=== PATIENT | male | born 1970 | race Caucasian/White ===

== ENCOUNTER 2017-04-03 02:48 | Emergency (ER) | payer OTHER ==
[~2017-04-03] VITALS: Ht 182.9 cm; Wt 131.5 kg
[2017-04-03 03:04] VITALS: BP 180/81
[2017-04-03] MEDS ORDERED: AMOX1TAB61 PO (03:35)
--- NOTE | 2017-04-03 03:35 | PHYS DOC ---
Past Medical History Past Medical History: No Pertinent History Past Surgical History: TURP, Other Alcohol Use: None Drug Use: None (currently), Methamphetamine (>10 years ago) Adult General Chief Complaint Chief Complaint: SORE THROAT HPI HPI Patient is a 46 year old male who presents with 1 week of gradually worsening left lower dental pain and slight sore throat, constant, achy. He denies voice changes, fever or chills, difficulty breathing, difficulty swallowing, difficulty opening mouth, facial swelling. Review of Systems Review of Systems Constitutional: Denies fever or chills [] Eyes: Denies change in visual acuity, redness, or eye pain [] HENT: Denies nasal congestion or sore throat [] Respiratory: Denies cough or shortness of breath [] Cardiovascular: No additional information not addressed in HPI [] GI: Denies abdominal pain, nausea, vomiting, bloody stools or diarrhea [] : Denies dysuria or hematuria [] Musculoskeletal: Denies back pain or joint pain [] Integument: Denies rash or skin lesions [] Neurologic: Denies headache, focal weakness or sensory changes [] Endocrine: Denies polyuria or polydipsia [] Allergies Allergies Allergies Coded Allergies Type Severity Reaction Last Updated Verified No Known Drug Allergies 04/16/15 No Physical Exam Physical Exam Constitutional: Well developed, well nourished, no acute distress, non-toxic appearance. [] HENT: Normocephalic, atraumatic, bilateral external ears normal, oropharynx moist, no oral exudates, nose normal. Has multiple dental caries and has gumline tenderness along left lower gumline; No swelling or discoloration; No stridor, change of voice, tongue swelling, trismus, or drooling; Uvula is midline and floor is nontender [] Eyes: PERRLA, EOMI. [] Neck: Normal range of motion, supple, no stridor. [] Cardiovascular:Heart rate regular rhythm [] Lungs & Thorax: Bilateral breath sounds clear to auscultation [] Abdomen: Bowel sounds normal, soft, no tenderness. [] Skin: Warm, dry, no erythema, no rash. [] Back: Normal range of motion. [] Extremities: No tenderness, ROM intact. [] Neurologic: Alert and oriented X 3, normal motor function, normal sensory function, no focal deficits noted. [] Psychologic: Affect normal, judgement normal, mood normal. [] Current Patient Data Vital Signs Vital Signs Date Time Temp Pulse Resp B/P (MAP) Pulse Ox O2 Delivery O2 Flow Rate FiO2 04/03/17 03:04 97.7 99 20 97 Room Air 97.7 Course & Med Decision Making Course & Med Decision Making Discussed he needs to follow up with a dentist. Will place on antibiotics. Return precautions given. He understands and agrees with plan. Dragon Disclaimer Dragon Disclaimer This electronic medical record was generated, in whole or in part, using a voice recognition dictation system. Departure Departure Impression: Primary Impression: Periodontitis Disposition: HOME, SELF-CARE Condition: STABLE Referrals: CAMILLE HENSON PA-C (PCP) Patient Instructions: Dental Pain, [id number] Additional Instructions: Take Augmentin for likely dental infection. Follow-up with a dentist within 3 days. Return for any concerns. Scripts Amoxicillin/Potassium Clav (AUGMENTIN 875-125 TABLET) 1 Each Tablet 1 TAB PO BID, #14 TAB Prov: Enriqueta AMES MD 04/03/17 Enriqueta AMES MD April 03, 2017 03:35
[2017-04-03 11:16] LABS: NEGATIVE OBC STREP NEG; POSITIVE OBC STREP POS
== END 2017-04-03 03:44 | disposition home or self-care (01) ==
LOC: ER 02:48
DX: K05.30 Chronic periodontitis, unspecified (principal)
CPT/HCPCS: 87070; 87880; 99283; 99284

== ENCOUNTER 2017-08-14 13:58 | Emergency (ER) | payer OTHER ==
[~2017-08-14] VITALS: Ht 182.9 cm; Wt 127.0 kg
[~2017-08-14 13:58] MED LIST: AMOX1TAB61 PO
[2017-08-14 14:58] LABS: BASO # 0.1 x10^3/uL (0.0-0.2); BASO % 1 % (0-3); EOS % 2 % (0-3); HEMATOCRIT 42.3 % (39.0-53.0); HEMOGLOBIN 13.9 g/dL (13.0-17.5); LYMPH # 1.3 x10^3/uL (1.0-4.8); LYMPH % 14 % (24-48); MEAN CORPUSCULAR HEMOGLOBIN 27 pg (25-35); MEAN CORPUSCULAR HGB CONC 33 g/dL (31-37); MEAN CORPUSCULAR VOLUME 83 fL (79-100); MONO % 8 % (0-9); NEUT % 75 % (31-73); PLATELET COUNT 299 x10^3/uL (140-400); RED BLOOD COUNT 5.07 x10^6/uL (4.30-5.70); RED CELL DISTRIBUTION WIDTH 13.5 % (11.5-14.5); WHITE BLOOD COUNT 9.3 x10^3/uL (4.0-11.0)
[2017-08-14] MEDS ORDERED: FAMOTIDINE 20 MG TABLET. PO ONE (15:00)
[2017-08-14] MEDS ORDERED: ONDANSETRON PF 4 MG/2 ML VIAL. IV ONE (15:00)
[2017-08-14 15:14] LABS: CALCIUM 8.9 mg/dL (8.5-10.1); CREATININE 0.7 mg/dL (0.7-1.3); GFR 120.9; POTASSIUM 3.4 mmol/L (3.5-5.1)
[2017-08-14 15:20] LABS: ALBUMIN 3.2 g/dL (3.4-5.0); ALBUMIN/GLOBULIN RATIO 0.9 (1.0-1.7); TOTAL BILIRUBIN 0.3 mg/dL (0.2-1.0); TOTAL PROTEIN 6.8 g/dL (6.4-8.2)
--- NOTE | 2017-08-14 15:29 | PHYS DOC ---
Past Medical History Past Medical History: No Pertinent History Past Surgical History: TURP, Other Alcohol Use: None Drug Use: None, Methamphetamine Adult General Chief Complaint Chief Complaint: ABDOMINAL PAIN HPI HPI Patient is a 47 year old male presents with diffuse. Umbilical pain described as burning and rated moderate to severe the past 3 days. Pain is worse 20-30 minutes after eating. Associated with nausea and vomiting. Patient reports vomiting stomach tense mixed with dark red blood. There are also reports dark stools for the past 2 days. Denies back pain. Denies dizziness lightheadedness. Denies routine and said and alcohol use. No history of GI bleed or peptic ulcer disease. No other acute symptoms or complaints. Review of Systems Review of Systems Review symptoms as per history of present illness. All other review symptoms are negative. Current Medications Current Medications Current Medications Medications (Trade) Dose Ordered Sig/Yanira Start Time Stop Time Status Last Admin Dose Admin Famotidine (Pepcid) 20 mg 1X ONCE 08/14/17 15:00 08/14/17 15:01 DC 08/14/17 15:14 20 MG Iohexol (Omnipaque 300 Mg/ml) 75 ml 1X ONCE 08/14/17 15:45 08/14/17 15:46 DC 08/14/17 15:49 75 ML Multi-Ingredient Mouthwash/Gargle (Gi Cocktail Single Dose) 15 ml STK-MED ONCE 08/14/17 17:23 08/14/17 17:24 DC Ondansetron HCl (Zofran) 4 mg 1X ONCE 08/14/17 15:00 08/14/17 15:01 DC 08/14/17 15:14 4 MG Allergies Allergies Allergies Coded Allergies Type Severity Reaction Last Updated Verified No Known Drug Allergies 04/16/15 No Physical Exam Physical Exam Constitutional: Well developed, well nourished, no acute distress, non-toxic appearance. [] HENT: Normocephalic, atraumatic, bilateral external ears normal, oropharynx moist, no oral exudates, nose normal. [] Eyes: PERRLA, EOMI, conjunctiva normal, no discharge. [] Neck: Normal range of motion, no tenderness, supple, no stridor. [] Cardiovascular:Heart rate regular rhythm, no murmur [] Lungs & Thorax: Bilateral breath sounds clear to auscultation [] Abdomen: Bowel sounds normal, soft, diffuse abdominal pain, mild tenderness, no masses, no pulsatile masses. [] Skin: Warm, dry, no erythema, no rash. [] Back: No tenderness, no CVA tenderness. [] Extremities: No tenderness, no cyanosis, no clubbing, ROM intact, no edema. [] Neurologic: Alert and oriented X 3, normal motor function, normal sensory function, no focal deficits noted. [] Psychologic: Affect normal, judgement normal, mood normal. [] Current Patient Data Vital Signs Vital Signs Date Time Temp Pulse Resp B/P (MAP) Pulse Ox O2 Delivery O2 Flow Rate FiO2 08/14/17 15:58 72 18 135/86 (102) 97 Room Air 08/14/17 14:25 97.7 97.7 Lab Values Laboratory Tests Test 08/14/17 14:40 08/14/17 15:20 White Blood Count 9.3 x10^3/uL (4.0-11.0) Red Blood Count 5.07 x10^6/uL (4.30-5.70) Hemoglobin 13.9 g/dL (13.0-17.5) Hematocrit 42.3 % (39.0-53.0) Mean Corpuscular Volume 83 fL (79-100) Mean Corpuscular Hemoglobin 27 pg (25-35) Mean Corpuscular Hemoglobin Concent 33 g/dL (31-37) Red Cell Distribution Width 13.5 % (11.5-14.5) Platelet Count 299 x10^3/uL (140-400) Neutrophils (%) (Auto) 75 % (31-73) H Lymphocytes (%) (Auto) 14 % (24-48) L Monocytes (%) (Auto) 8 % (0-9) Eosinophils (%) (Auto) 2 % (0-3) Basophils (%) (Auto) 1 % (0-3) Neutrophils # (Auto) 7.0 x10^3uL (1.8-7.7) Lymphocytes # (Auto) 1.3 x10^3/uL (1.0-4.8) Monocytes # (Auto) 0.8 x10^3/uL (0.0-1.1) Eosinophils # (Auto) 0.1 x10^3/uL (0.0-0.7) Basophils # (Auto) 0.1 x10^3/uL (0.0-0.2) Sodium Level 141 mmol/L (136-145) Potassium Level 3.4 mmol/L (3.5-5.1) L Chloride Level 105 mmol/L (98-107) Carbon Dioxide Level 29 mmol/L (21-32) Anion Gap 7 (6-14) Blood Urea Nitrogen 13 mg/dL (8-26) Creatinine 0.7 mg/dL (0.7-1.3) Estimated GFR (Cockcroft-Gault) 120.9 BUN/Creatinine Ratio 19 (6-20) Glucose Level 166 mg/dL (70-99) H Calcium Level 8.9 mg/dL (8.5-10.1) Total Bilirubin 0.3 mg/dL (0.2-1.0) Aspartate Amino Transferase (AST) 11 U/L (15-37) L Alanine Aminotransferase (ALT) 18 U/L (16-63) Alkaline Phosphatase 80 U/L (46-116) Total Protein 6.8 g/dL (6.4-8.2) Albumin 3.2 g/dL (3.4-5.0) L Albumin/Globulin Ratio 0.9 (1.0-1.7) L Lipase 101 U/L (73-393) Urine Collection Type Unknown Urine Color Yellow Urine Clarity Turbid Urine pH 8.0 Urine Specific [place] 1.020 Urine Protein Negative mg/dL (NEG-TRACE) Urine Glucose (UA) Negative mg/dL (NEG) Urine Ketones (Stick) Negative mg/dL (NEG) Urine Blood Negative (NEG) Urine Nitrite Negative (NEG) Urine Bilirubin Negative (NEG) Urine Urobilinogen Dipstick 0.2 mg/dL (0.2 mg/dL) Urine Leukocyte Esterase Negative (NEG) Urine RBC 0 /HPF (0-2) Urine WBC 0 /HPF (0-4) Urine Amorphous Sediment Present /HPF Urine Bacteria 0 /HPF (0-FEW) Urine Mucus Slight /LPF Laboratory Tests 08/14/17 14:40 Laboratory Tests 08/14/17 14:40 EKG EKG [] Radiology/Procedures Radiology/Procedures [CT abdomen pelvis: No acute intra-abdominal disease per radiology report.] Course & Med Decision Making Course & Med Decision Making Pertinent Labs and Imaging studies reviewed. (See chart for details) [Abdomen soft, minimally tender on exam. Vital signs, hemoglobin stable. CT and lab unremarkable. No vomiting her bloody bowel movements in the emergency department. Admission for observation and treatment versus outpatient treatment offered to patient. Patient declines admission. We'll treat aggressively for suspected GI bleed with PCP follow-up and referral to GI physician. Patient extensively symptoms worsen or recur he should return to the emergency department immediately. Of note, a small solitary lesion was data find on the liver on today's CT scan. Patient is instructed to follow-up for outpatient imaging. He agrees to discharge plan.] Dragon Disclaimer Dragon Disclaimer This electronic medical record was generated, in whole or in part, using a voice recognition dictation system. Departure Departure Impression: Primary Impression: Abdominal pain Additional Impression: GI bleed Condition: Referrals: CAMILLE HENSON PA-C (PCP) Problem Qualifiers FARRUKHARIA HERRERA Aug 14, 2017 15:29
[2017-08-14 15:39] LABS: BILIRUBIN,URINE NEGATIVE (NEG); GLUCOSE,URINE NEGATIVE (NEG); NITRITE,URINE NEGATIVE (NEG); PROTEIN,URINE NEGATIVE (NEG-TRACE); UROBILINOGEN,URINE 0.2 mg/dL (0.2 mg/dL)
[2017-08-14] MEDS ORDERED: IOHEXOL 300 MG/ML 75 ML VIAL IV ONE (15:45)
[2017-08-14 16:01] LABS: BACTERIA,URINE 0 /HPF (0-FEW); RBC,URINE 0 /HPF (0-2); WBC,URINE 0 /HPF (0-4)
--- NOTE | 2017-08-14 16:41 | RAD ---
CT ABD PELV W/ IV CONTRST ONLY dated 08/14/2017 3:48 PM Indication:EPIGASTRIC PAIN X3DAYS
OMNI 300 75ML
Comparison: No comparison is available. Technique: Following injection of 80 mL of Omnipaque 300 IV, images were obtained through the abdomen and pelvis. No oral contrast was given. One or more of the following individualized dose reduction techniques were utilized for this examination: 1. Automated exposure control 2. Adjustment of the mA and/or kV according to patient size 3. Use of iterative reconstruction technique Findings: There is elevation of the left hemidiaphragm. There is patchy atelectasis or scarring in the left lower lobe. The liver shows a 2 cm low density mass in the posterior superior aspect of its right lobe. No other liver lesions are identified. There is no hepatomegaly. The spleen contains calcified granulomas and is otherwise unremarkable. The pancreas, adrenal glands, and kidneys are unremarkable. The unopacified bowel loops are normal in appearance. The appendix is not visualized. No inflammatory changes are identified around the cecum. There is no evidence of bowel obstruction. No free fluid or adenopathy is seen. Prostate is not enlarged. IMPRESSION: There is a 2 cm lesion in the posterior superior aspect of the right lobe the liver. If the patient has had any previous studies comparison would be helpful. Further characterization of the liver lesion by abdominal abdominal ultrasound would be helpful if it is new, or no prior studies are available. Elevation of the left hemidiaphragm which is probably a chronic finding. Correlation previous chest x-rays the helpful to confirm this. Electronically signed by: Sallie Amezcua MD (08/14/2017 4:38 PM) [facility] [place]
[2017-08-14] MEDS ORDERED: LIDO:MAALOX:DONNATAL 1:1:1 15 ML SINGLE DOSE ONE (17:23)
[2017-08-14] MEDS ORDERED: LIDO:MAALOX:DONNATAL 1:1:1 15 ML SINGLE DOSE SWSW ONE (17:30)
[2017-08-14 17:58] VITALS: BP 134/85
== END 2017-08-14 18:03 | disposition home or self-care (01) ==
LOC: ER 13:58
DX: K92.2 Gastrointestinal hemorrhage, unspecified (principal)
CPT/HCPCS: 36415; 74177; 80053; 81001; 83690; 85025; 96374; 99285; J2405; Q9967

== ENCOUNTER 2017-11-13 21:08 | Emergency (ER) | payer OTHER ==
[~2017-11-13] VITALS: Ht 182.9 cm; Wt 127.0 kg
[2017-11-13 21:22] VITALS: BP 139/84
[2017-11-13] MEDS ORDERED: ALBUTEROL SULFATE 2.5 MG/3 ML NEBU. NEB ONE (21:45)
[2017-11-13] MEDS ORDERED: AZIT250T PO (22:37)
[2017-11-13] MEDS ORDERED: PROAIR HFA8.5 GM INH (22:37)
--- NOTE | 2017-11-13 23:42 | PHYS DOC ---
Past Medical History Past Medical History: No Pertinent History Past Surgical History: TURP, Other Additional Past Surgical Histo: HERNIA REPAIR Alcohol Use: None Drug Use: None, Methamphetamine Adult General Chief Complaint Chief Complaint: FLU SYMPTOM HPI HPI Patient is a 47 year old male who presents with cough 4 days. Patient states that it has worsened with him coughing up yellow sputum now. He feels shortness of breath and has had nausea with coughing as well. Nothing is improving the patient's cough. Review of Systems Review of Systems Constitutional: Denies fever or chills [] Eyes: Denies change in visual acuity, redness, or eye pain [] HENT: The patient also states that he has a sore dry throat Respiratory: See history of present illness Cardiovascular: No additional information not addressed in HPI [] GI: See history of present illness[] : Denies dysuria or hematuria [] Musculoskeletal: Denies back pain or joint pain [] Integument: Denies rash or skin lesions [] Neurologic: Denies headache, focal weakness or sensory changes [] Endocrine: Denies polyuria or polydipsia [] All other systems were reviewed and found to be within normal limits, except as documented in this note. Current Medications Current Medications Current Medications Medications (Trade) Dose Ordered Sig/Yanira Start Time Stop Time Status Last Admin Dose Admin Albuterol Sulfate (Ventolin Neb Soln) 2.5 mg 1X ONCE 11/13/17 21:45 11/13/17 21:46 DC 11/13/17 21:48 2.5 MG Allergies Allergies Allergies Coded Allergies Type Severity Reaction Last Updated Verified No Known Drug Allergies 04/16/15 No Physical Exam Physical Exam Constitutional: Well developed, well nourished, no acute distress, non-toxic appearance. [] HENT: Normocephalic, atraumatic, bilateral external ears normal, oropharynx erythematous with sinus drainage noted to back throat, no oral exudates, nose normal. [] Eyes: PERRLA, EOMI, conjunctiva normal, no discharge. [] Neck: Normal range of motion, no tenderness, supple, no stridor. [] Cardiovascular:Heart rate regular rhythm, no murmur [] Lungs & Thorax: Bilateral breath sounds are diminished with a strong frequent productive cough[] Abdomen: Bowel sounds normal, soft, no tenderness, no masses, no pulsatile masses. [] Skin: Warm, dry, no erythema, no rash. [] Back: No tenderness, no CVA tenderness. [] Neurologic: Alert and oriented X 3, normal motor function, normal sensory function, no focal deficits noted. [] Psychologic: Affect normal, judgement normal, mood normal. [] Current Patient Data Vital Signs Vital Signs Date Time Temp Pulse Resp B/P (MAP) Pulse Ox O2 Delivery O2 Flow Rate FiO2 11/13/17 21:54 95 Room Air 11/13/17 21:22 98.1 99 16 98.1 EKG EKG [] Radiology/Procedures Radiology/Procedures []Patient's x-ray is negative for pneumonia or cardiac abnormality. This x-ray was read by Dr. Arambula in the emergency department. Course & Med Decision Making Course & Med Decision Making Pertinent Labs and Imaging studies reviewed. (See chart for details) []1. Respiratory infection 2. Cough Following administration of albuterol in the emergency department the patient states that he has improved and feels that he can take a deep breath now. The patient has been prescribed a Proventil inhaler as well as a Z-Venkata. He is to take all antibiotics until gone and uses Pro Air inhaler as discussed. He is to follow-up with his primary care provider in 3-4 days if not improving or return to the ED if worsening. Dragon Disclaimer Alexis Disclaimer This electronic medical record was generated, in whole or in part, using a voice recognition dictation system. Departure Departure Impression: Primary Impression: Cough Additional Impression: Respiratory infection Disposition: 01 HOME, SELF-CARE Condition: STABLE Patient Instructions: Cough, Adult Additional Instructions: Follow-up with your primary care physician in 3-4 days if not improving or return to the ED if worsening. Please take her medication as directed and finish the antibiotics. You may use [id number] cough control. Scripts Albuterol Sulfate (PROAIR HFA INHALER) 8.5 Gm Hfa.aer.ad 1 PUFF INH PRN Q6HRS Y for SHORTNESS OF BREATH, #1 INHALER 0 Refills Prov: ZAC TRIPATHI APRN 11/13/17 Azithromycin (ZITHROMAX) 250 Mg Tablet 1 PKG PO UD, #6 TAB Prov: ZAC TRIPATHI APRN 11/13/17 Problem Qualifiers ZAC TRIPATHI APRN Nov 13, 2017 23:42
--- NOTE | 2017-11-14 08:53 | RAD ---
2 view chest 11/13/2017 Clinical indication: Cough Comparison: Two-view chest 12/24/2015. Findings: There is mild elevation of the left hemidiaphragm with left basilar atelectasis or scarring. Old lateral right seventh and eighth rib fractures. Impression: Mild elevation of the left hemidiaphragm with left basilar atelectasis or scarring.
== END 2017-11-13 22:41 | disposition home or self-care (01) ==
LOC: ER 21:08
DX: J98.8 Other specified respiratory disorders (principal); R05 Cough; R11.0 Nausea; F15.10 Other stimulant abuse, uncomplicated
CPT/HCPCS: 71020; 94640; 99284; J7613

== ENCOUNTER 2017-12-05 15:54 | Emergency (ER) | payer OTHER ==
[2017-12-05 17:08] LABS: ADD MAN DIFF? NO
[2017-12-05 17:09] LABS: BASO # 0.1 x10^3/uL (0.0-0.2); BASO % 1 % (0-3); EOS # 0.2 x10^3/uL (0.0-0.7); EOS % 3 % (0-3); HEMATOCRIT 42.5 % (39.0-53.0); HEMOGLOBIN 14.4 g/dL (13.0-17.5); LYMPH # 1.5 x10^3/uL (1.0-4.8); LYMPH % 20 % (24-48); MEAN CORPUSCULAR HEMOGLOBIN 27 pg (25-35); MEAN CORPUSCULAR HGB CONC 34 g/dL (31-37); MEAN CORPUSCULAR VOLUME 81 fL (79-100); MONO # 0.8 x10^3/uL (0.0-1.1); MONO % 10 % (0-9); NEUT # 5.1 x10^3uL (1.8-7.7); NEUT % 67 % (31-73); PLATELET COUNT 342 x10^3/uL (140-400); RED BLOOD COUNT 5.28 x10^6/uL (4.30-5.70); RED CELL DISTRIBUTION WIDTH 14.1 % (11.5-14.5); WHITE BLOOD COUNT 7.7 x10^3/uL (4.0-11.0)
[2017-12-05 17:25] LABS: ANION GAP 9 (6-14); BLOOD UREA NITROGEN 15 mg/dL (8-26); BUN/CREATININE RATIO 21 (6-20); CALCIUM 8.2 mg/dL (8.5-10.1); CARBON DIOXIDE 25 mmol/L (21-32); CHLORIDE 104 mmol/L (98-107); CREATININE 0.7 mg/dL (0.7-1.3); GFR 120.9; GLUCOSE 142 mg/dL (70-99); POTASSIUM 4.1 mmol/L (3.5-5.1); SODIUM 138 mmol/L (136-145)
[2017-12-05 17:31] LABS: ALBUMIN 3.3 g/dL (3.4-5.0); ALK PHOS 104 U/L (46-116); ALT (SGPT) 18 U/L (16-63); AST (SGOT) 13 U/L (15-37); LIPASE 70 U/L (73-393); TOTAL BILIRUBIN 0.2 mg/dL (0.2-1.0); TOTAL PROTEIN 6.6 g/dL (6.4-8.2)
[2017-12-05 17:33] LABS: LACTIC ACID 1.4 mmol/L (0.4-2.0)
[2017-12-05 17:35] LABS: TROPONINI < 0.017 ng/mL (0.000-0.055)
== END 2017-12-05 18:47 | disposition home or self-care (01) ==
LOC: ER 15:54
DX: J18.1 Lobar pneumonia, unspecified organism (principal)
CPT/HCPCS: 36415; 71046; 80053; 83605; 83690; 84484; 85025; 87040; 93005; 96374; 99285-25; J0690

== ENCOUNTER 2019-02-07 07:29 | Emergency (ER) | payer OTHER ==
[~2019-02-07] VITALS: Ht 182.9 cm; Wt 117.9 kg
[~2019-02-07 07:29] MED LIST changes: +ALBU2.5V8 INH; +AZIT250T PO; +LEVO750T31 PO; +PROM118S5 PO
[2019-02-07] MEDS ORDERED: IV NORMAL SALINE 1000ML BAG 1,000 ML IV SCH (07:38)
[2019-02-07] MEDS ORDERED: IPRATRPIUM/ALBUTEROL 0.5/2.5MG 3 ML NEBU. NEB ONE ×2 (07:45→08:30)
[2019-02-07] MEDS ORDERED: methylPREDNISolone SOD SUCC PF 125 MG/2 ML VIAL. IV ONE (07:45)
[2019-02-07] MEDS ORDERED: ASPIRIN CHEWABLE 81 MG TABLET. PO ONE (07:45)
[2019-02-07] MEDS ORDERED: MAALOX:LIDO:APAP 6:2:1 ORAL SUSPENSION 180 ML BOTTLE. PO PRN (07:45)
--- NOTE | 2019-02-07 07:45 | PHYS DOC ---
Past Medical History Past Medical History: Asthma, Diabetes-Type II Past Surgical History: TURP, Other Additional Past Surgical Histo: HERNIA REPAIR Smoking: Quit Greater Than 1 Year Alcohol Use: None Drug Use: None, Methamphetamine Adult General Chief Complaint Chief Complaint: CHEST PAIN HPI HPI Patient is a 48-year-old male, former smoker, with a history of diabetes, who presents to the emergency department for evaluation. He states that for the past few hours, he has had some sharp anterior chest discomfort, worse with coughing, deep breathing, movements, and reported wheezing. He also reports a burning sensation in his throat. EMS administered an albuterol treatment in route, as well as supplemental oxygen, with reported improvement in the patient' s breath sounds. He has had a cough, but he is uncertain of the color of the mucous he is producing. He denies any exertional pain, or any radiation of this chest pain. He has not had any chest pressure. Other than stated above, there are no alleviating, or exacerbating factors to the patient's symptoms. Assuming his troponin is normal, his HEART score is a 3, indicating low risk for acute coronary syndrome. Review of Systems Review of Systems Constitutional: Denies fever or chills [] Eyes: Denies change in visual acuity, redness, or eye pain [] HENT: Denies nasal congestion or sore throat [] Respiratory: Ports cough and shortness of breath.[] Cardiovascular: No additional information not addressed in HPI [] GI: Denies abdominal pain, nausea, vomiting, bloody stools or diarrhea [] : Denies dysuria or hematuria [] Musculoskeletal: Denies back pain or joint pain [] Integument: Denies rash or skin lesions [] Neurologic: Denies headache, focal weakness or sensory changes [] Endocrine: Denies polyuria or polydipsia [] All other systems were reviewed and found to be within normal limits, except as documented in this note. Current Medications Current Medications Current Medications Medications (Trade) Dose Ordered Sig/Yanira Start Time Stop Time Status Last Admin Dose Admin Albuterol/ Ipratropium (Duoneb) 3 ml 1X ONCE 02/07/19 08:30 02/07/19 08:31 DC 02/07/19 08:41 3 ML Aspirin (Children'S Aspirin) 324 mg 1X ONCE 02/07/19 07:45 02/07/19 07:46 DC 02/07/19 08:08 324 MG Methylprednisolone Sodium Succinate (SOLU-Medrol 125MG VIAL) 125 mg 1X ONCE 02/07/19 07:45 02/07/19 07:46 DC 02/07/19 08:09 125 MG Multi-Ingredient Mouthwash/Gargle (Velvet Glove Oral Susp) 10 ml PRN QID PRN 02/07/19 07:45 02/07/19 08:09 10 ML Sodium Chloride 1,000 ml @ 100 mls/hr Q10H 02/07/19 07:38 02/07/19 17:37 02/07/19 08:09 100 MLS/HR Allergies Allergies Allergies Coded Allergies Type Severity Reaction Last Updated Verified No Known Drug Allergies 04/16/15 No Physical Exam Physical Exam PHYSICAL EXAM: CONSTITUTIONAL: Well developed, well nourished HEAD: normocephalic, atraumatic EENT: PERRL, EOMI. Conjunctivae normal color, sclerae non-icteric; moist mucous membranes. NECK: Supple, non-tender; no meningismus. LUNGS: There are Scattered coarse wheezes in all lung rivera with diminished breath sounds bilaterally, breathing even and unlabored. HEART: Regular rate and rhythm, no murmur CHEST: No deformity; the patient the anterior chest wall reproduces the patient' s pain. ABDOMEN: The abdomen is soft, and non-tender, no masses or bruits. EXTREM: Normal ROM; no deformity, no calf tenderness. Normal pulses palpable in all extremities. There is no pedal edema. SKIN: No rash; no diaphoresis NEURO: Alert; normal speech and cognition; CN's grossly intact; strength grossly intact without focal deficit. BACK: No CVA TTP. Current Patient Data Vital Signs Vital Signs Date Time Temp Pulse Resp B/P (MAP) Pulse Ox O2 Delivery O2 Flow Rate FiO2 02/07/19 08:42 96 Nasal Cannula 3.0 02/07/19 07:43 98.2 82 24 137/86 (103) 98.2 Lab Values Laboratory Tests Test 02/07/19 07:38 02/07/19 07:41 Glucose (Fingerstick) 175 mg/dL (70-99) H White Blood Count 11.1 x10^3/uL (4.0-11.0) H Red Blood Count 5.00 x10^6/uL (4.30-5.70) Hemoglobin 13.3 g/dL (13.0-17.5) Hematocrit 40.6 % (39.0-53.0) Mean Corpuscular Volume 81 fL (79-100) Mean Corpuscular Hemoglobin 27 pg (25-35) Mean Corpuscular Hemoglobin Concent 33 g/dL (31-37) Red Cell Distribution Width 15.0 % (11.5-14.5) H Platelet Count 299 x10^3/uL (140-400) Neutrophils (%) (Auto) 71 % (31-73) Lymphocytes (%) (Auto) 18 % (24-48) L Monocytes (%) (Auto) 8 % (0-9) Eosinophils (%) (Auto) 2 % (0-3) Basophils (%) (Auto) 1 % (0-3) Neutrophils # (Auto) 7.9 x10^3uL (1.8-7.7) H Lymphocytes # (Auto) 2.0 x10^3/uL (1.0-4.8) Monocytes # (Auto) 0.9 x10^3/uL (0.0-1.1) Eosinophils # (Auto) 0.2 x10^3/uL (0.0-0.7) Basophils # (Auto) 0.1 x10^3/uL (0.0-0.2) Prothrombin Time 12.3 SEC (11.7-14.0) Prothrombin Time INR 0.9 (0.8-1.1) D-Dimer (Chanelle) < 0.27 ug/mlFEU Sodium Level 140 mmol/L (136-145) Potassium Level 4.0 mmol/L (3.5-5.1) Chloride Level 102 mmol/L (98-107) Carbon Dioxide Level 27 mmol/L (21-32) Anion Gap 11 (6-14) Blood Urea Nitrogen 17 mg/dL (8-26) Creatinine 0.8 mg/dL (0.7-1.3) Estimated GFR (Cockcroft-Gault) 103.2 BUN/Creatinine Ratio 21 (6-20) H Glucose Level 187 mg/dL (70-99) H Calcium Level 8.4 mg/dL (8.5-10.1) L Magnesium Level 2.3 mg/dL (1.8-2.4) Total Bilirubin 0.2 mg/dL (0.2-1.0) Aspartate Amino Transferase (AST) 12 U/L (15-37) L Alanine Aminotransferase (ALT) 16 U/L (16-63) Alkaline Phosphatase 95 U/L (46-116) Creatine Kinase 88 U/L (39-308) Creatine Kinase MB (Mass) 1.5 ng/mL (0.0-3.6) Creatine Kinase MB Relative Index 1.7 % (0-4) Troponin I Quantitative < 0.017 ng/mL (0.000-0.055) RO-Grc-D-Type Natriuretic Peptide 25 pg/mL (0-124) Total Protein 6.4 g/dL (6.4-8.2) Albumin 3.2 g/dL (3.4-5.0) L Albumin/Globulin Ratio 1.0 (1.0-1.7) Lipase 71 U/L (73-393) L Laboratory Tests 02/07/19 07:41 Laboratory Tests 02/07/19 07:41 EKG EKG []Normal sinus rhythm at a rate of 75 beats for minute, rightward axis deviation , right bundle-branch block pattern with nonspecific ST/T changes without acute ischemic changes noted. The EKG is unchanged compared to patient's EKG from . Radiology/Procedures Radiology/Procedures [PROCEDURE: CHEST PA & LATERAL CHEST PA LATERAL History: chest pain and cough since 4 am today Comparison: Two-view chest December 05, 2017. Findings: The cardiomediastinal silhouette is normal. Pulmonary vasculature is normal. Stable moderate elevation of left hemidiaphragm. Left basilar airspace disease is unchanged. Vague interstitial opacity in the right lung base. No pleural effusion or pneumothorax is seen. Old right rib fractures. IMPRESSION: 1. Unchanged elevation of left hemidiaphragm and left basilar chronic atelectasis or scarring. 2. Faint interstitial opacities in the right lung base may be early infiltrate or asymmetric edema or atelectasis.] Course & Med Decision Making Course & Med Decision Making Pertinent Labs and Imaging studies reviewed. (See chart for details) [9:45 AM: The patient's condition remained stable, his oxygen saturation is in the upper 90s on room air at this time. His breath sounds have improved after nebulizer treatments. He states he has a nebulizer with adequate medication at home but does not use it regularly, I encouraged them to do so, every 6 hours for the next several days. Given his mild leukocytosis and questionable infiltrate on chest x-ray will be treated with antibiotics. I discussed importance of close follow-up with his PCP and return precautions.] The patient' s chest pain appears to be musculoskeletal. Dragon Disclaimer Dragon Disclaimer This electronic medical record was generated, in whole or in part, using a voice recognition dictation system. Departure Departure Impression: Primary Impression: Acute asthma exacerbation Additional Impression: Atypical chest pain Disposition: HOME, SELF-CARE Condition: STABLE Referrals: JASON HAYWOOD MD (PCP) Patient Instructions: Asthma, Adult, Chest Wall Pain, Pneumonia, Adult Additional Instructions: Use your nebulizer and nebulizer medication every 6 hours for the next 3-4 days , and then as needed for increased shortness of breath. Return to medical care for any new or worsening symptoms, increasing shortness of breath, increasing chest pain, or any other new or concerning symptoms. Scripts Prednisone (PREDNISONE) 20 Mg Tablet 40 MG PO DAILY for 5 Days, #10 TAB Prov: FELICE MESSER MD 02/07/19 Azithromycin (AZITHROMYCIN TABLET) 250 Mg Tablet 1 PKG PO UD, #6 TAB Prov: FELICE MESSER MD 02/07/19 Problem Qualifiers FELICE MESSER MD Feb 07, 2019 07:44
[2019-02-07 07:49] LABS: BASO # 0.1 x10^3/uL (0.0-0.2); BASO % 1 % (0-3); EOS # 0.2 x10^3/uL (0.0-0.7); EOS % 2 % (0-3); HEMATOCRIT 40.6 % (39.0-53.0); HEMOGLOBIN 13.3 g/dL (13.0-17.5); LYMPH % 18 % (24-48); MEAN CORPUSCULAR HEMOGLOBIN 27 pg (25-35); MEAN CORPUSCULAR HGB CONC 33 g/dL (31-37); MEAN CORPUSCULAR VOLUME 81 fL (79-100); MONO # 0.9 x10^3/uL (0.0-1.1); MONO % 8 % (0-9); NEUT # 7.9 x10^3uL (1.8-7.7); NEUT % 71 % (31-73); PLATELET COUNT 299 x10^3/uL (140-400); WHITE BLOOD COUNT 11.1 x10^3/uL (4.0-11.0)
[2019-02-07 07:59] LABS: CALCIUM 8.4 mg/dL (8.5-10.1); CREATININE 0.8 mg/dL (0.7-1.3); GFR 103.2
[2019-02-07 08:02] LABS: PROTHROMBIN TIME PATIENT 12.3 SEC (11.7-14.0)
[2019-02-07 08:05] LABS: D-DIMER < 0.27 ug/mlFEU (0.00-0.50)
[2019-02-07 08:06] LABS: ALBUMIN 3.2 g/dL (3.4-5.0); MAGNESIUM 2.3 mg/dL (1.8-2.4); TOTAL BILIRUBIN 0.2 mg/dL (0.2-1.0); TOTAL PROTEIN 6.4 g/dL (6.4-8.2)
--- NOTE | 2019-02-07 08:22 | RAD ---
CHEST PA LATERAL History: chest pain and cough since 4 am today Comparison: Two-view chest December 05, 2017. Findings: The cardiomediastinal silhouette is normal. Pulmonary vasculature is normal. Stable moderate elevation of left hemidiaphragm. Left basilar airspace disease is unchanged. Vague interstitial opacity in the right lung base. No pleural effusion or pneumothorax is seen. Old right rib fractures. IMPRESSION: 1. Unchanged elevation of left hemidiaphragm and left basilar chronic atelectasis or scarring. 2. Faint interstitial opacities in the right lung base may be early infiltrate or asymmetric edema or atelectasis. Electronically signed by: Barry Edwards MD (02/07/2019 8:19 AM) [id number]
--- NOTE | 2019-02-07 09:11 | EKG ---
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
[2019-02-07] MEDS ORDERED: AZIT250T6 PO (09:50)
[2019-02-07] MEDS ORDERED: PRED20TA PO (09:50)
[2019-02-07 10:04] VITALS: BP 112/59
== END 2019-02-07 10:18 | disposition home or self-care (01) ==
LOC: ER 07:29
DX: R07.89 Other chest pain (principal); J45.901 Unspecified asthma with (acute) exacerbation; E11.9 Type 2 diabetes mellitus without complications; Z87.891 Personal history of nicotine dependence; Z98.890 Other specified postprocedural states
CPT/HCPCS: 36415; 71046; 80053; 82553; 82962; 83690; 83735; 83880; 84484; 85025; 85379; 85610; 93005; 94640; 96374; 99284; J2930; J7030; J7620

== ENCOUNTER 2020-05-07 01:27 | Emergency (ER) | payer OTHER ==
[~2020-05-07] VITALS: Ht 182.9 cm; Wt 127.3 kg
[~2020-05-07 01:27] MED LIST changes: +AZIT250T6 PO; +PRED20TA PO
[2020-05-07] MEDS ORDERED: IV NORMAL SALINE 1000ML BAG 1,000 ML IV SCH (01:32)
[2020-05-07] MEDS ORDERED: LIDO:MAALOX 1:1 20 ML SINGLE DOSE. SWSW ONE (01:45)
[2020-05-07] MEDS ORDERED: FAMOTIDINE 20 MG/2 ML VIAL IVP ONE (01:45)
[2020-05-07] MEDS ORDERED: ONDANSETRON PF 4 MG/2 ML VIAL. IVP ONE (01:45)
[2020-05-07 01:51] LABS: BASO # 0.1 x10^3/uL (0.0-0.2); BASO % 1 % (0-3); EOS # 0.2 x10^3/uL (0.0-0.7); EOS % 2 % (0-3); HEMOGLOBIN 13.4 g/dL (13.0-17.5); LYMPH % 19 % (24-48); MEAN CORPUSCULAR HEMOGLOBIN 27 pg (25-35); MEAN CORPUSCULAR HGB CONC 34 g/dL (31-37); MEAN CORPUSCULAR VOLUME 79 fL (79-100); MONO # 0.9 x10^3/uL (0.0-1.1); MONO % 8 % (0-9); NEUT # 7.3 x10^3/uL (1.8-7.7); NEUT % 70 % (31-73); PLATELET COUNT 348 x10^3/uL (140-400); RED BLOOD COUNT 5.05 x10^6/uL (4.30-5.70); RED CELL DISTRIBUTION WIDTH 15.4 % (11.5-14.5); WHITE BLOOD COUNT 10.4 x10^3/uL (4.0-11.0)
[2020-05-07 02:01] LABS: CALCIUM 8.3 mg/dL (8.5-10.1); GFR 79.1
[2020-05-07 02:07] LABS: ALBUMIN 3.3 g/dL (3.4-5.0); MAGNESIUM 2.1 mg/dL (1.8-2.4); TOTAL BILIRUBIN 0.1 mg/dL (0.2-1.0); TOTAL PROTEIN 6.7 g/dL (6.4-8.2)
--- NOTE | 2020-05-07 02:20 | RAD ---
INDICATION: Reason: chest pain / Spl. Instructions: / History: COMPARISON: February 07, 2019 FINDINGS: Single view of chest obtained. Redemonstration of elevation of the left hemidiaphragm with linear opacity at the left lung base again seen. Repeat demonstration of enlarged cardiomediastinal silhouette which is deviated to the right. Mild interstitial prominence similar to prior IMPRESSION: * Redemonstration of elevation of the left hemidiaphragm with some deviation of the mediastinum to the right. * Redemonstration of linear opacity at the left lung base which could be secondary to atelectasis although infiltrate is not excluded. This appears slightly decreased from prior. * Enlarged cardiomediastinal Silhouette which can be seen with cardiomegaly and/or pericardial effusion. Electronically signed by: Dom Cat MD (05/07/2020 2:17 AM) [id number]
[2020-05-07 02:39] LABS: BILIRUBIN,URINE NEGATIVE (NEG); CLARITY,URINE CLEAR; COLOR,URINE YELLOW; NITRITE,URINE NEGATIVE (NEG); PROTEIN,URINE NEGATIVE (NEG-TRACE)
[2020-05-07 02:45] LABS: BACTERIA,URINE 0 /HPF (0-FEW); SQUAMOUS EPITHELIAL CELL,UR OCC /LPF
--- NOTE | 2020-05-07 04:15 | PHYS DOC ---
Past Medical History Past Medical History: Asthma, Diabetes-Type II Past Surgical History: TURP, Other Additional Past Surgical Histo: HERNIA REPAIR Smoking Status: Former Smoker Alcohol Use: None Drug Use: None, Methamphetamine General Adult EDM: Chief Complaint: CHEST PAIN HPI: HPI: Patient is a 50 year old male who presents with approximately 45-minute onset of chest pain from his upper abdomen all the way up to his throat. He describes pain as burning and at times pressure-like. He states that he is also had some shortness of breath as well as nausea. He denies any vomiting or diarrhea. He denies any cough. Patient rates pain at an 8 out of 10. Patient states that there are no alleviating factors. He is not aware of any exacerbating factors. [] Review of Systems: Review of Systems: Constitutional: Denies fever or chills. [] Respiratory: Complains of shortness of breath. [] Cardiovascular: Complains of chest pain. [] GI: Complains of upper abdominal burning with nausea. Denies vomiting or diarrhea. [] Neurologic: Denies headache, focal weakness or sensory changes. [] A full 10 point review of systems has been reviewed and is otherwise negative. Heart Score: HEART Score for Chest Pain: HEART Score for Chest Pain Response (Comments) Value History Slighlty/Non-Suspicious 0 ECG Nonspecific Repolarizatio 1 Age >45 - < 65 1 Risk Factors 1 or 2 Risk Factors 1 Troponin < Normal Limit 0 Total 3 Risk Factors: Risk Factors: DM, Current or recent (<one month) smoker, HTN, HLP, family history of CAD, obesity. Risk Scores: Score 0 - 3: 2.5% MACE over next 6 weeks - Discharge Home Score 4 - 6: 20.3% MACE over next 6 weeks - Admit for Clinical Observation Score 7 - 10: 72.7% MACE over next 6 weeks - Early Invasive Strategies Current Medications: Current Medications Medications (Trade) Dose Ordered Sig/Yanira Start Time Stop Time Status Last Admin Dose Admin Famotidine (Pepcid Vial) 20 mg 1X ONCE 05/07/20 01:45 05/07/20 01:46 DC 05/07/20 01:48 20 MG Multi-Ingredient Mouthwash/Gargle (Gi Cocktail) 20 ml 1X ONCE 05/07/20 01:45 05/07/20 01:46 DC 05/07/20 01:48 20 ML Ondansetron HCl (Zofran) 4 mg 1X ONCE 05/07/20 01:45 05/07/20 01:46 DC 05/07/20 01:48 4 MG Sodium Chloride 1,000 ml @ 1,000 mls/hr Q1H 05/07/20 01:32 05/07/20 02:31 DC 05/07/20 01:47 1,000 MLS/HR Allergies: Allergies: Allergies Coded Allergies Type Severity Reaction Last Updated Verified No Known Drug Allergies 04/16/15 No Physical Exam: PE: Constitutional: Well developed, well nourished, no acute distress, non-toxic appearance. [] HENT: Normocephalic, atraumatic, bilateral external ears normal, oropharynx moist, no oral exudates, nose normal. [] Eyes: PERRLA, EOMI, conjunctiva normal, no discharge. [] Neck: Normal range of motion, no tenderness, supple, no stridor. [] Cardiovascular: Regular rate and rhythm [] Lungs & Thorax: Bilateral breath sounds clear to auscultation [] Abdomen: Bowel sounds normal, soft, no tenderness. [] Skin: Warm, dry, no erythema, no rash. [] Extremities: No tenderness, no cyanosis, no clubbing, ROM intact. [] Neurologic: Alert and oriented X 3, no focal deficits noted. [] Current Patient Data: Labs: Laboratory Tests Test 05/07/20 01:41 05/07/20 02:29 White Blood Count 10.4 x10^3/uL (4.0-11.0) Red Blood Count 5.05 x10^6/uL (4.30-5.70) Hemoglobin 13.4 g/dL (13.0-17.5) Hematocrit 40.0 % (39.0-53.0) Mean Corpuscular Volume 79 fL (79-100) Mean Corpuscular Hemoglobin 27 pg (25-35) Mean Corpuscular Hemoglobin Concent 34 g/dL (31-37) Red Cell Distribution Width 15.4 % (11.5-14.5) H Platelet Count 348 x10^3/uL (140-400) Neutrophils (%) (Auto) 70 % (31-73) Lymphocytes (%) (Auto) 19 % (24-48) L Monocytes (%) (Auto) 8 % (0-9) Eosinophils (%) (Auto) 2 % (0-3) Basophils (%) (Auto) 1 % (0-3) Neutrophils # (Auto) 7.3 x10^3/uL (1.8-7.7) Lymphocytes # (Auto) 2.0 x10^3/uL (1.0-4.8) Monocytes # (Auto) 0.9 x10^3/uL (0.0-1.1) Eosinophils # (Auto) 0.2 x10^3/uL (0.0-0.7) Basophils # (Auto) 0.1 x10^3/uL (0.0-0.2) Sodium Level 139 mmol/L (136-145) Potassium Level 4.0 mmol/L (3.5-5.1) Chloride Level 102 mmol/L (98-107) Carbon Dioxide Level 27 mmol/L (21-32) Anion Gap 10 (6-14) Blood Urea Nitrogen 18 mg/dL (8-26) Creatinine 1.0 mg/dL (0.7-1.3) Estimated GFR (Cockcroft-Gault) 79.1 BUN/Creatinine Ratio 18 (6-20) Glucose Level 146 mg/dL (70-99) H Calcium Level 8.3 mg/dL (8.5-10.1) L Magnesium Level 2.1 mg/dL (1.8-2.4) Total Bilirubin 0.1 mg/dL (0.2-1.0) L Aspartate Amino Transferase (AST) 13 U/L (15-37) L Alanine Aminotransferase (ALT) 21 U/L (16-63) Alkaline Phosphatase 103 U/L (46-116) Troponin I Quantitative < 0.017 ng/mL (0.000-0.055) YO-Iev-D-Type Natriuretic Peptide 21 pg/mL (0-124) Total Protein 6.7 g/dL (6.4-8.2) Albumin 3.3 g/dL (3.4-5.0) L Albumin/Globulin Ratio 1.0 (1.0-1.7) Lipase 82 U/L (73-393) Urine Collection Type Unknown Urine Color Yellow Urine Clarity Clear Urine pH 6.0 (<5.0-8.0) Urine Specific [place] 1.020 (1.000-1.030) Urine Protein Negative mg/dL (NEG-TRACE) Urine Glucose (UA) Negative mg/dL (NEG) Urine Ketones (Stick) Negative mg/dL (NEG) Urine Blood Negative (NEG) Urine Nitrite Negative (NEG) Urine Bilirubin Negative (NEG) Urine Urobilinogen Dipstick 1.0 mg/dL (0.2 mg/dL) Urine Leukocyte Esterase Trace (NEG) Urine RBC 1-2 /HPF (0-2) Urine WBC 1-4 /HPF (0-4) Urine Squamous Epithelial Cells Occ /LPF Urine Bacteria 0 /HPF (0-FEW) Laboratory Tests 05/07/20 01:41 Laboratory Tests 05/07/20 01:41 Vital Signs: Vital Signs Date Time Temp Pulse Resp B/P (MAP) Pulse Ox O2 Delivery O2 Flow Rate FiO2 05/07/20 01:28 98.5 91 18 149/68 (95) 93 Room Air 98.5 EKG: EKG: EKG demonstrates normal sinus rhythm with rate of 93. There is a right bundle branch block present. [] Radiology/Procedures: Radiology/Procedures: [] Impression: PROCEDURE: PORTABLE CHEST 1V INDICATION: Reason: chest pain / Spl. Instructions: / History: COMPARISON: February 07, 2019 FINDINGS: Single view of chest obtained. Redemonstration of elevation of the left hemidiaphragm with linear opacity at the left lung base again seen. Repeat demonstration of enlarged cardiomediastinal silhouette which is deviated to the right. Mild interstitial prominence similar to prior IMPRESSION: * Redemonstration of elevation of the left hemidiaphragm with some deviation of the mediastinum to the right. * Redemonstration of linear opacity at the left lung base which could be secondary to atelectasis although infiltrate is not excluded. This appears slightly decreased from prior. * Enlarged cardiomediastinal Silhouette which can be seen with cardiomegaly and/or pericardial effusion. Electronically signed by: Dom Cat MD (05/07/2020 2:17 AM) [id number] Course & Med Decision Making: Course & Med Decision Making Pertinent Labs and Imaging studies reviewed. (See chart for details) [] Dragon Disclaimer: Dragon Disclaimer: This electronic medical record was generated, in whole or in part, using a voice recognition dictation system. Departure Departure Impression: Primary Impression: Chest pain Qualified Codes: R07.9 - Chest pain, unspecified Additional Impression: Gastroesophageal reflux Qualified Codes: K21.9 - Gastro-esophageal reflux disease without esophagitis Disposition: HOME, SELF-CARE Condition: STABLE Referrals: ELOISE DOOLEY (PCP) Patient Instructions: Chest Pain (Nonspecific), Diet for Gastroesophageal Reflux Disease, Adult, Gastroesophageal Reflux Disease, Adult Scripts Ondansetron (ONDANSETRON ODT) 4 Mg Tab.rapdis 1 TAB PO PRN Q6-8HRS PRN for NAUSEA, #15 TAB Prov: SRINIVASAN HENNESSY Jr. DO 05/07/20 Omeprazole (OMEPRAZOLE) 40 Mg Capsule.dr 1 CAP PO DAILY, #30 CAP Prov: SRINIVASAN HENNESSY Jr. DO 05/07/20 Justicifation of Admission Dx: Justifications for Admission: Justification of Admission Dx: N/A SRINIVASAN HENNESSY Jr. DO May 07, 2020 04:15
[2020-05-07] MEDS ORDERED: OMEP40CA45 PO (04:45)
[2020-05-07] MEDS ORDERED: ONDA4TAB12 PO (04:45)
[2020-05-07 04:47] VITALS: BP 169/86
--- NOTE | 2020-05-07 06:50 | EKG ---
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 Electronically Signed On 05-10-2020 16:07:58 CDT by Kyle Acosta
== END 2020-05-07 04:51 | disposition home or self-care (01) ==
LOC: ER 01:27
DX: K21.9 Gastro-esophageal reflux disease without esophagitis (principal); R07.89 Other chest pain; J45.909 Unspecified asthma, uncomplicated; E11.9 Type 2 diabetes mellitus without complications; Z87.891 Personal history of nicotine dependence
CPT/HCPCS: 36415; 71045; 80053; 81001; 83690; 83735; 83880; 84484; 85025; 85379; 87086; 93005; 96374; 96375; 99285; J2405; J3490; J7030